=== PATIENT | female | born 1975 | race Two or more races ===

== ENCOUNTER 2020-06-01 05:15 | Day surgery (SDC) | payer OTHER ==
[~2020-06-01 05:15] MED LIST: CATALAN PO; LOSARTAN-HCTZ1 EAC1 PO; VITAMIN PO
[2020-06-01] MEDS ORDERED: KEFLEX500 MG PO (12:55)
[2020-06-01] MEDS ORDERED: ULTRACET PO (12:55)
== END 2020-06-01 15:55 | disposition home or self-care (01) ==
LOC: CIR.AMB 05:15
PROVIDERS: ATTEND Surgery
DX: I87.2 Venous insufficiency (chronic) (peripheral) (principal); Z20.828 Contact with and (suspected) exposure to other viral communicable diseases